=== PATIENT | female | born 1995 | race Caucasian/White ===

== ENCOUNTER 2016-02-17 17:35 | Emergency (ER) | payer BC ==
[~2016-02-17] VITALS: Ht 152.4 cm; Wt 54.4 kg
[2016-02-17 17:36] VITALS: BP 127/78
== END 2016-02-17 18:15 | disposition home or self-care (01) ==
LOC: ER 17:35
DX: J02.0 Streptococcal pharyngitis (principal); R11.2 Nausea with vomiting, unspecified; F17.210 Nicotine dependence, cigarettes, uncomplicated; F10.99 Alcohol use, unspecified with unspecified alcohol-induced disorder; F41.9 Anxiety disorder, unspecified; F32.9 Major depressive disorder, single episode, unspecified